=== PATIENT | male | born 1980 | race Caucasian/White ===

== ENCOUNTER 2020-07-29 07:28 | Outpatient (REF) | payer OTHER, SELFPAY | END 2020-07-29 07:29 | disposition home or self-care (01) | LOC: HO.MDS 07:28 | PROVIDERS: PCP Internal Medicine; Visit Provider Internal Medicine Gastroenterology | DX: K50.90 Crohn's disease, unspecified, without complications (principal) | CPT/HCPCS: 96365; J3380 ==

== ENCOUNTER 2020-09-09 | Outpatient (REF) | payer OTHER, MEDICAID, SELFPAY | END 2020-09-09 00:01 | disposition home or self-care (01) | LOC: HO.MDS | PROVIDERS: PCP Internal Medicine; Visit Provider Internal Medicine Gastroenterology | DX: K50.00 Crohn's disease of small intestine without complications (principal) | CPT/HCPCS: 96365; J3380 ==

== ENCOUNTER 2020-10-24 13:27 | Outpatient (REF) | payer OTHER, MEDICAID, SELFPAY | END 2020-10-24 13:28 | disposition home or self-care (01) | LOC: HO.MDS 13:27 | PROVIDERS: PCP Internal Medicine; Visit Provider Internal Medicine Gastroenterology | DX: K50.90 Crohn's disease, unspecified, without complications (principal) | CPT/HCPCS: 96365; J3380 ==

== ENCOUNTER 2020-12-05 13:24 | Outpatient (REF) | payer OTHER, MEDICAID, SELFPAY ==
[2020-12-05 14:08] LABS: Hematocrit 47.9 % (42-52); Hemoglobin 16.1 g/dl (14.0-18.0); Mean Corpuscular HGB Conc 33.6 g/dl (31.0-36.0); Mean Corpuscular Hemoglobin 30.9 pg (27.0-33.0); Mean Corpuscular Volume 91.9 fL (80-98); Mean Platelet Volume 10.2 fL (9.4-12.4); Platelet Count 211 X10*3/uL (160-400); Red Blood Count 5.21 X10*6/uL (4.60-5.80); Red Cell Distribution Width 12.8 % (11.0-16.0); White Blood Count 7.6 X10*3/uL (4.8-10.8)
[2020-12-05 14:44] LABS: Anion Gap 12 (12-20); Blood Urea Nitrogen 15 mg/dL (9-16); Carbon Dioxide 29 mmol/L (22-29); Chloride 104 mmol/L (96-108); Estimated Glomerular Filt Rate > 60; Glucose Random 155 mg/dL (60-115); Potassium 4.1 mmol/L (3.3-5.1); Sodium 141 mmol/L (135-145)
[2020-12-05 14:47] LABS: Erythrocyte Sedimentation Rate 2 MM/HR (0-15)
== END 2020-12-05 13:25 | disposition home or self-care (01) ==
LOC: HO.MDS 13:24
PROVIDERS: PCP Internal Medicine; Visit Provider Internal Medicine Gastroenterology
DX: K50.00 Crohn's disease of small intestine without complications (principal)
CPT/HCPCS: 36415; 80048; 85027; 85652; 86140; 96365; J3380

== ENCOUNTER 2021-01-16 13:24 | Outpatient (REF) | payer OTHER, MEDICAID, SELFPAY ==
[2021-01-16 14:05] LABS: Hematocrit 47.2 % (42-52); Hemoglobin 15.7 g/dl (14.0-18.0); Mean Corpuscular HGB Conc 33.3 g/dl (31.0-36.0); Mean Corpuscular Hemoglobin 30.5 pg (27.0-33.0); Mean Corpuscular Volume 91.8 fL (80-98); Platelet Count 220 X10*3/uL (160-400); Red Blood Count 5.14 X10*6/uL (4.60-5.80); Red Cell Distribution Width 12.8 % (11.0-16.0); White Blood Count 7.2 X10*3/uL (4.8-10.8)
[2021-01-16 14:34] LABS: Alanine Aminotransferase 30 U/L (0-40); Albumin Level 4.3 g/dL (3.5-5.0); Alkaline Phosphatase 78 U/L (39-117); Anion Gap 12 (12-20); Aspartate Amino Transferase 24 U/L (5-37); Bilirubin Total 0.8 mg/dL (0.0-1.0); Blood Urea Nitrogen 12 mg/dL (9-16); Calcium 8.8 mg/dL (8.4-10.2); Carbon Dioxide 27 mmol/L (22-29); Chloride 105 mmol/L (96-108); Estimated Glomerular Filt Rate > 60; Glucose Random 131 mg/dL (60-115); Potassium 3.9 mmol/L (3.3-5.1); Sodium 140 mmol/L (135-145); Total Protein 6.6 g/dL (6.5-8.0)
[2021-01-16 14:46] LABS: Erythrocyte Sedimentation Rate 2 MM/HR (0-15)
== END 2021-01-16 13:25 | disposition home or self-care (01) ==
LOC: HO.MDS 13:24
PROVIDERS: PCP Internal Medicine; Visit Provider Internal Medicine Gastroenterology
DX: K50.00 Crohn's disease of small intestine without complications (principal)
CPT/HCPCS: 36415; 80053; 85027; 85652; 86140; 96365; J3380

== ENCOUNTER → 2021-02-13 09:23 | Outpatient (BNVA) | payer OTHER, MEDICAID, SELFPAY | PROVIDERS: PCP Internal Medicine; Visit Provider Internal Medicine Gastroenterology ==

== ENCOUNTER 2021-02-27 13:26 | Outpatient (REF) | payer OTHER, MEDICAID, SELFPAY | END 2021-02-27 13:27 | disposition home or self-care (01) | LOC: HO.MDS 13:26 | PROVIDERS: PCP Internal Medicine; Visit Provider Internal Medicine Gastroenterology | DX: K50.00 Crohn's disease of small intestine without complications (principal) | CPT/HCPCS: 96365; J3380 ==

== ENCOUNTER 2021-04-10 13:41 | Outpatient (REF) | payer OTHER, MEDICAID, SELFPAY | END 2021-04-10 13:42 | disposition home or self-care (01) | LOC: HO.MDS 13:41 | PROVIDERS: PCP Internal Medicine; Visit Provider Internal Medicine Gastroenterology | DX: K50.90 Crohn's disease, unspecified, without complications (principal) | CPT/HCPCS: 96365; J3380 ==

== ENCOUNTER 2021-05-22 13:24 | Outpatient (REF) | payer OTHER, MEDICAID, SELFPAY | END 2021-05-22 13:25 | disposition home or self-care (01) | LOC: HO.MDS 13:24 | PROVIDERS: PCP Internal Medicine; Visit Provider Internal Medicine Gastroenterology | DX: K50.90 Crohn's disease, unspecified, without complications (principal) | CPT/HCPCS: 96365; J3380 ==

== ENCOUNTER 2021-07-03 13:28 | Outpatient (REF) | payer OTHER, MEDICAID, SELFPAY ==
[2021-07-06 13:41] LABS: TS Negative Control Passed; TS Panel A 0; TS Panel B 0; TS Positive Control Passed; TSpotTB Negative (Negative)
== END 2021-07-03 13:29 | disposition home or self-care (01) ==
LOC: HO.MDS 13:28
PROVIDERS: PCP Internal Medicine; Visit Provider Internal Medicine Gastroenterology
DX: K50.00 Crohn's disease of small intestine without complications (principal)
CPT/HCPCS: 36415; 86481; 96365; J3380

== ENCOUNTER 2021-08-21 13:26 | Outpatient (REF) | payer OTHER, MEDICAID, SELFPAY | END 2021-08-21 13:27 | disposition home or self-care (01) | LOC: HO.MDS 13:26 | PROVIDERS: PCP Internal Medicine; Visit Provider Internal Medicine Gastroenterology | DX: K50.00 Crohn's disease of small intestine without complications (principal) | CPT/HCPCS: 96365; J3380 ==

== ENCOUNTER 2021-10-05 13:11 | Outpatient (REF) | payer OTHER, MEDICAID, SELFPAY | END 2021-10-05 13:12 | disposition home or self-care (01) | LOC: HO.MDS 13:11 | PROVIDERS: PCP Internal Medicine; Visit Provider Internal Medicine Gastroenterology | DX: K50.00 Crohn's disease of small intestine without complications (principal) | CPT/HCPCS: 96365; J3380 ==

== ENCOUNTER 2021-11-20 13:30 | Outpatient (REF) | payer OTHER, SELFPAY | END 2021-11-20 13:31 | disposition home or self-care (01) | LOC: HO.MDS 13:30 | PROVIDERS: PCP Internal Medicine; Visit Provider Internal Medicine Gastroenterology | DX: K50.00 Crohn's disease of small intestine without complications (principal) | CPT/HCPCS: 96365; J3380 ==

== ENCOUNTER 2022-01-01 13:23 | Outpatient (REF) | payer OTHER, SELFPAY | END 2022-01-01 13:24 | disposition home or self-care (01) | LOC: HO.MDS 13:23 | PROVIDERS: PCP Internal Medicine; Visit Provider Internal Medicine Gastroenterology | DX: K50.00 Crohn's disease of small intestine without complications (principal) | CPT/HCPCS: 96365; J3380 ==

== ENCOUNTER 2022-02-12 13:35 | Outpatient (REF) | payer OTHER, SELFPAY | END 2022-02-12 13:36 | disposition home or self-care (01) | LOC: HO.MDS 13:35 | PROVIDERS: PCP Internal Medicine; Visit Provider Internal Medicine Gastroenterology | DX: K50.00 Crohn's disease of small intestine without complications (principal) | CPT/HCPCS: 96365; J3380 ==

== ENCOUNTER 2022-03-26 13:25 | Outpatient (REF) | payer OTHER, SELFPAY | END 2022-03-26 13:26 | disposition home or self-care (01) | LOC: HO.MDS 13:25 | PROVIDERS: PCP Internal Medicine; Visit Provider Internal Medicine Gastroenterology | DX: K50.00 Crohn's disease of small intestine without complications (principal) | CPT/HCPCS: 96365; J3380 ==

== ENCOUNTER 2022-04-23 10:47 | Outpatient (REF) | payer OTHER, SELFPAY ==
[2022-04-23 11:03] LABS: MANUAL DIFF FLAG NO
[2022-04-23 12:19] LABS: Basophils Percent Auto 0.3 % (0-2); Eosinophils Absolute Auto 0.1 X10*3/uL (0.0-0.4); Eosinophils Percent Auto 1.2 % (0-4); Hematocrit 50.6 % (42.0-52.0); Hemoglobin 16.9 g/dl (14.0-18.0); Imm Gran Abs Auto 0.02 X10*3/uL (0.00-0.03); Imm Gran Pct Auto 0.3 % (0.0-0.4); Lymphocytes Absolute Auto 1.7 X10*3/uL (1.2-4.9); Mean Corpuscular HGB Conc 33.4 g/dl (31.0-36.0); Mean Corpuscular Hemoglobin 31.1 pg (27.0-33.0); Mean Platelet Volume 10.8 fL (9.4-12.4); Monocytes Absolute Auto 0.5 X10*3/uL (0.1-1.2); Neutrophils Absolute Auto 5.5 x10*3/uL (2.0-8.3); Neutrophils Percent Auto 70.2 % (45-73); Platelet Count 194 X10*3/uL (160-400); Red Blood Count 5.44 X10*6/uL (4.60-5.80); Red Cell Distribution Width 13.2 % (11.0-16.0); White Blood Count 7.8 X10*3/uL (4.8-10.8)
[2022-04-23 12:45] LABS: Alanine Aminotransferase 10 U/L (0-40); Albumin Level 4.6 g/dL (3.5-5.0); Alkaline Phosphatase 79 U/L (39-117); Anion Gap 12 (12-20); Aspartate Amino Transferase 15 U/L (5-37); Blood Urea Nitrogen 18 mg/dL (9-16); C Reactive Protein 0.31 mg/dL (< or = 0.50); Carbon Dioxide 26 mmol/L (22-29); Chloride 106 mmol/L (96-108); Estimated Glomerular Filt Rate > 60; Glucose Fasting 92 mg/dL (60-99); Sodium 140 mmol/L (135-145); Total Protein 6.9 g/dL (6.5-8.0)
[2022-04-23 13:07] LABS: Ferritin 45 ng/mL (20-250); Vitamin D 25-OH Total 57.2 ng/mL (>30)
[2022-04-23 13:14] LABS: Folate 15.4 ng/mL (> or = 4.0); Vitamin B12 1195 pg/mL (200-900)
[2022-04-27 15:41] LABS: TS Negative Control Passed; TS Panel A 0; TS Panel B 0; TS Positive Control Passed; TSpotTB Negative (Negative)
== END 2022-04-23 10:48 | disposition home or self-care (01) ==
LOC: HO.LAB 10:47
PROVIDERS: PCP Internal Medicine; Visit Provider Internal Medicine Gastroenterology
DX: K50.90 Crohn's disease, unspecified, without complications (principal); K75.81 Nonalcoholic steatohepatitis (NASH)
CPT/HCPCS: 36415; 80053; 82306; 82607; 82728; 82746; 82947; 85025; 86140; 86481

== ENCOUNTER 2022-05-07 13:30 | Outpatient (REF) | payer OTHER, SELFPAY ==
[2022-05-13 12:57] LABS: TS Negative Control Passed; TS Panel A 0; TS Panel B 0; TS Positive Control Passed; TSpotTB Negative (Negative)
== END 2022-05-07 13:31 | disposition home or self-care (01) ==
LOC: HO.MDS 13:30
PROVIDERS: Visit Provider Internal Medicine Gastroenterology
DX: K50.00 Crohn's disease of small intestine without complications (principal)
CPT/HCPCS: 36415; 86481; 96365; J3380

== ENCOUNTER 2022-06-18 13:25 | Outpatient (REF) | payer OTHER, SELFPAY | END 2022-06-18 13:26 | disposition home or self-care (01) | LOC: HO.MDS 13:25 | PROVIDERS: Visit Provider Internal Medicine Gastroenterology | DX: K50.00 Crohn's disease of small intestine without complications (principal) | CPT/HCPCS: 96365; J3380 ==

== ENCOUNTER 2022-07-30 13:43 | Outpatient (REF) | payer OTHER, SELFPAY | END 2022-07-30 13:44 | disposition home or self-care (01) | LOC: HO.MDS 13:43 | PROVIDERS: Visit Provider Internal Medicine Gastroenterology | DX: K50.00 Crohn's disease of small intestine without complications (principal) | CPT/HCPCS: 96365; J3380 ==

== ENCOUNTER 2022-09-10 13:33 | Outpatient (REF) | payer OTHER, SELFPAY | END 2022-09-10 13:34 | disposition home or self-care (01) | LOC: HO.MDS 13:33 | PROVIDERS: Visit Provider Internal Medicine Gastroenterology | DX: K50.00 Crohn's disease of small intestine without complications (principal) | CPT/HCPCS: 96365; J3380 ==

== ENCOUNTER 2022-10-15 09:26 | Outpatient (REF) | payer OTHER, SELFPAY ==
[2022-10-15 10:20] LABS: MANUAL DIFF FLAG NO
[2022-10-15 10:57] LABS: Basophils Percent Auto 0.1 % (0-2); Eosinophils Absolute Auto 0.1 X10*3/uL (0.0-0.4); Eosinophils Percent Auto 1.9 % (0-4); Hematocrit 48.7 % (42.0-52.0); Hemoglobin 16.6 g/dl (14.0-18.0); Imm Gran Abs Auto 0.01 X10*3/uL (0.00-0.03); Imm Gran Pct Auto 0.1 % (0.0-0.4); Lymphocytes Absolute Auto 1.9 X10*3/uL (1.2-4.9); Lymphocytes Percent Auto 25.7 % (20-40); Mean Corpuscular HGB Conc 34.1 g/dl (31.0-36.0); Mean Corpuscular Hemoglobin 31.9 pg (27.0-33.0); Mean Corpuscular Volume 93.5 fL (80.0-98.0); Monocytes Absolute Auto 0.5 X10*3/uL (0.1-1.2); Monocytes Percent Auto 6.8 % (2-11); Neutrophils Absolute Auto 4.7 x10*3/uL (2.0-8.3); Neutrophils Percent Auto 65.4 % (45-73); Platelet Count 196 X10*3/uL (160-400); Red Blood Count 5.21 X10*6/uL (4.60-5.80); Red Cell Distribution Width 12.9 % (11.0-16.0); White Blood Count 7.2 X10*3/uL (4.8-10.8)
[2022-10-15 11:36] LABS: Alanine Aminotransferase 11 U/L (0-40); Albumin Level 4.6 g/dL (3.5-5.0); Alkaline Phosphatase 88 U/L (39-117); Anion Gap 13 (12-20); Aspartate Amino Transferase 17 U/L (5-37); Bilirubin Total 0.9 mg/dL (0.0-1.0); Blood Urea Nitrogen 21 mg/dL (9-16); C Reactive Protein 0.22 mg/dL (< or = 0.50); Calcium 9.6 mg/dL (8.4-10.2); Carbon Dioxide 30 mmol/L (22-29); Chloride 104 mmol/L (96-108); Cholesterol 195 mg/dL; Estimated Glomerular Filt Rate > 60; Glucose Random 91 mg/dL (60-115); HDL Cholesterol 52 mg/dL; LDL Cholesterol Calculated 127 mg/dl; Potassium 4.4 mmol/L (3.3-5.1); Sodium 143 mmol/L (135-145); Total Protein 6.8 g/dL (6.5-8.0); Triglycerides 83 mg/dL
[2022-10-15 13:01] LABS: Reflex LDLD? No
== END 2022-10-15 09:27 | disposition home or self-care (01) ==
LOC: HO.LAB 09:26
PROVIDERS: PCP Internal Medicine; Visit Provider Internal Medicine Gastroenterology
DX: K50.90 Crohn's disease, unspecified, without complications (principal); K75.81 Nonalcoholic steatohepatitis (NASH); E78.5 Hyperlipidemia, unspecified
CPT/HCPCS: 36415; 80053; 80061; 85025; 86140

== ENCOUNTER 2022-10-22 13:31 | Outpatient (REF) | payer OTHER, SELFPAY | END 2022-10-22 13:32 | disposition home or self-care (01) | LOC: HO.MDS 13:31 | PROVIDERS: Visit Provider Internal Medicine Gastroenterology | DX: K50.00 Crohn's disease of small intestine without complications (principal) | CPT/HCPCS: 96365; J3380 ==

== ENCOUNTER 2023-01-13 13:25 | Outpatient (REF) | payer OTHER, SELFPAY | END 2023-01-13 13:26 | disposition home or self-care (01) | LOC: HO.MDS 13:25 | PROVIDERS: Visit Provider Internal Medicine Gastroenterology | DX: K50.00 Crohn's disease of small intestine without complications (principal) | CPT/HCPCS: 96365; J3380 ==

== ENCOUNTER 2023-02-25 13:39 | Outpatient (REF) | payer OTHER, SELFPAY | END 2023-02-25 13:40 | disposition home or self-care (01) | LOC: HO.MDS 13:39 | PROVIDERS: Visit Provider Internal Medicine Gastroenterology | DX: K50.00 Crohn's disease of small intestine without complications (principal) | CPT/HCPCS: 96365; J3380 ==

== ENCOUNTER 2023-04-08 | Outpatient (REF) | payer OTHER, SELFPAY | END 2023-04-08 00:01 | disposition home or self-care (01) | LOC: HO.MDS | PROVIDERS: Visit Provider Internal Medicine Gastroenterology | DX: K50.00 Crohn's disease of small intestine without complications (principal) | CPT/HCPCS: 96365; J3380 ==

== ENCOUNTER → 2023-04-15 11:22 | Outpatient (BNVA) | payer OTHER, SELFPAY | PROVIDERS: PCP Internal Medicine; Visit Provider Internal Medicine Gastroenterology ==

== ENCOUNTER 2023-05-20 13:32 | Outpatient (REF) | payer OTHER, SELFPAY | END 2023-05-20 13:33 | disposition home or self-care (01) | LOC: HO.MDS 13:32 | PROVIDERS: Visit Provider Internal Medicine Gastroenterology | DX: K50.00 Crohn's disease of small intestine without complications (principal) | CPT/HCPCS: 96365; J3380 ==

== ENCOUNTER 2023-07-01 13:30 | Outpatient (REF) | payer OTHER, SELFPAY | END 2023-07-01 13:31 | disposition home or self-care (01) | LOC: HO.MDS 13:30 | PROVIDERS: Visit Provider Internal Medicine Gastroenterology | DX: K50.00 Crohn's disease of small intestine without complications (principal) | CPT/HCPCS: 96365; J3380 ==

== ENCOUNTER 2023-08-12 13:30 | Outpatient (REF) | payer OTHER, SELFPAY ==
[2023-08-14 18:13] LABS: TS Negative Control Passed; TS Panel A 0; TS Panel B 1; TS Positive Control Passed; TSpotTB Negative (Negative)
== END 2023-08-12 13:31 | disposition home or self-care (01) ==
LOC: HO.MDS 13:30
PROVIDERS: Visit Provider Internal Medicine Gastroenterology
DX: K50.90 Crohn's disease, unspecified, without complications (principal); Z11.1 Encounter for screening for respiratory tuberculosis
CPT/HCPCS: 36415; 86481; 96365; J3380

== ENCOUNTER 2023-09-23 13:29 | Outpatient (REF) | payer OTHER, SELFPAY | END 2023-09-23 13:30 | disposition home or self-care (01) | LOC: HO.MDS 13:29 | PROVIDERS: PCP Internal Medicine; Visit Provider Internal Medicine Gastroenterology | DX: K50.90 Crohn's disease, unspecified, without complications (principal) | CPT/HCPCS: 96365; J3380 ==

== ENCOUNTER 2023-11-04 13:33 | Outpatient (REF) | payer OTHER, SELFPAY | END 2023-11-04 13:34 | disposition home or self-care (01) | LOC: HO.MDS 13:33 | PROVIDERS: Visit Provider Internal Medicine Gastroenterology | DX: K50.00 Crohn's disease of small intestine without complications (principal) | CPT/HCPCS: 96365; J3380 ==

== ENCOUNTER 2023-12-16 13:24 | Outpatient (REF) | payer OTHER, SELFPAY ==
[2023-12-16 13:26] VITALS: BP 126/71; PULSE 75; RESP 16; TEMP 37.2; O2SAT 100
[2023-12-16] MEDS: Vedolizumab 300 MG in 0.9 % Sodium Chloride 250 ML 510 MG IV (13:56)
== END 2023-12-16 13:25 | disposition home or self-care (01) ==
LOC: HO.MDS 13:24
PROVIDERS: Visit Provider Internal Medicine Gastroenterology
DX: K50.00 Crohn's disease of small intestine without complications (principal)
CPT/HCPCS: 96365; J3380

== ENCOUNTER 2023-12-19 14:25 | Outpatient (AMB) | payer OTHER, SELFPAY ==
--- NOTE | 2023-12-19 14:29 | A.OFFVIS_ITS ---
Intake Vital Signs 12/19/23 14:30 Height 6 ft Weight 191 lb 12.835 oz BMI 26.0 BP 133/81 Blood Pressure Location Lt brachial Position Sitting Pulse 82 Intake Visit Reasons: 8 month f/u Intake Note: Maury presents in the office as a 8 month follow up. CC: States that he is feeling good and not having any concerns. Variety Performer Required: No Allergies No Known Allergies [No Known Allergies*] Allergy (Verified 04/15/23 11:27) HPI 8 month f/u HPI Details 43 y/o m w/ hx of crohns, HTN and fatty liver being seen for f/u RECAP I saw him at [facility] prior to coming to [place] He has been on entyvio for about 2 yrs or so, AZA was stopped due to pancreatitis prior to this had been doing relatively well but when he reached week 7 he starts to feel sx coming back with diarrhea or abdo discomfort GERD well controlled. HM: TB spot neg 01/2019 and 2020 he has had pneumovax and hep b vaccines, covid vaccination with playnik veYoungCurrent trough 23-- 03/22/19--no antibodies detected. 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 VITAL SIGNS:see workflow HEENT: Nonicteric sclerae, PERRLA, EOMI. Oropharynx clear. Moist mucous membranes. Conjunctivae appear well perfused. No thyroid mass. CHEST: Chest wall is nontender. HEART: Regular rate and rhythm without murmurs. LUNGS: Clear to auscultation bilaterally. ABDOMEN: Soft, positive bowel sounds, nontender, no organomegaly.no flank tenderness SKIN: No rash, no excessive bruising, petechiae, or purpura. NEUROLOGIC: Cranial nerves II-XII intact without motor/sensory deficit. Assessments 1. Crohn''s disease without complication , in remission 1/ Appears to be in deep remission, cont with entyvio q 6 weeks as doing 2/ still trying to stop smoking, encoura ged to do so 3/ colonoscopy screening, suprep [facility] Surgical History H/O colonoscopy H/O esophagogastroduodenoscopy H/O removal of cyst Family History Maternal Grandfather COVID-19 Prostate cancer Social History Household Members: Spouse and Children Alcohol intake: current Alcohol intake frequency: a few times a month Cigarette Packs Per Day: 1 Substance Use Type: Marijuana Physical Exam Vital Signs: Last Vital Signs Pulse 82 12/19/23 14:30 BP 133/81 12/19/23 14:30 BMI result Body Mass Index 26.0 Assessment & Plan Assessment & Plan (1) Crohn's disease in remission: Code(s): K50.90 - Crohn's disease, unspecified, without complications Plan: 1. Crohn''s disease without complication, in remission 1/ Appears to be in deep remission, cont with entyvio q 6 weeks as doing 2/ still trying to stop smoking, encouraged to do so 3/ colonoscopy screening, suprep Medications: New sodium,potassium,mag sulfates 17.5-3.13-1.6 gram (Suprep Bowel Prep Kit) DILUTE; drink 1/2 at 6-8 pm and half at 11 PM- 1AM 354 mL 0RF Coding Level of Care Code Est Pt Level 3 (20665) Diagnoses Crohn's disease in remission K50.90
[2023-12-19 14:30] VITALS: BP 133/81; PULSE 82; BMI 26.0
== END 2023-12-19 15:17 | disposition home or self-care (01) ==
PROVIDERS: PCP Internal Medicine; Visit Provider Internal Medicine Gastroenterology
DX: K50.90 Crohn's disease, unspecified, without complications (principal)
CPT/HCPCS: 99213

== ENCOUNTER 2023-12-19 14:25 | Outpatient (REF) | payer OTHER, SELFPAY ==
[2023-12-19 15:29] LABS: MANUAL DIFF FLAG NO
[2023-12-19 15:45] LABS: Basophils Percent Auto 0.6 % (0-2); Eosinophils Absolute Auto 0.3 X10*3/uL (0.0-0.4); Eosinophils Percent Auto 4.4 % (0-4); Hematocrit 47.9 % (42.0-52.0); Hemoglobin 16.3 g/dl (14.0-18.0); Imm Gran Abs Auto 0.02 X10*3/uL (0.00-0.03); Imm Gran Pct Auto 0.3 % (0.0-0.4); Lymphocytes Absolute Auto 1.8 X10*3/uL (1.2-4.9); Lymphocytes Percent Auto 27.3 % (20-40); Mean Corpuscular Hemoglobin 32.8 pg (27.0-33.0); Mean Corpuscular Volume 96.4 fL (80.0-98.0); Mean Platelet Volume 9.6 fL (9.4-12.4); Monocytes Absolute Auto 0.6 X10*3/uL (0.1-1.2); Monocytes Percent Auto 8.8 % (2-11); Neutrophils Absolute Auto 3.9 x10*3/uL (2.0-8.3); Neutrophils Percent Auto 58.6 % (45-73); Platelet Count 173 X10*3/uL (160-400); Red Blood Count 4.97 X10*6/uL (4.60-5.80); Red Cell Distribution Width 12.5 % (11.0-16.0); White Blood Count 6.6 X10*3/uL (4.8-10.8)
[2023-12-19 16:02] LABS: Alanine Aminotransferase 17 U/L (0-40); Albumin Level 4.5 g/dL (3.5-5.0); Alkaline Phosphatase 56 U/L (39-117); Anion Gap 12 (12-20); Aspartate Amino Transferase 18 U/L (5-37); Bilirubin Total 0.4 mg/dL (0.0-1.0); Blood Urea Nitrogen 32 mg/dL (9-16); C Reactive Protein < 0.04 mg/dL (< or = 0.50); Calcium 9.7 mg/dL (8.4-10.2); Carbon Dioxide 33 mmol/L (22-29); Chloride 103 mmol/L (96-108); Estimated Glomerular Filt Rate > 60; Glucose Random 105 mg/dL (60-115); Potassium 4.5 mmol/L (3.3-5.1); Sodium 143 mmol/L (135-145)
== END 2023-12-19 14:26 | disposition home or self-care (01) ==
LOC: HO.LAB 14:25
PROVIDERS: PCP Internal Medicine; Visit Provider Internal Medicine Gastroenterology
DX: K50.90 Crohn's disease, unspecified, without complications (principal); K75.81 Nonalcoholic steatohepatitis (NASH)
CPT/HCPCS: 36415; 80053; 85025; 86140

== ENCOUNTER 2025-02-07 09:26 | Day surgery (SDC) | payer OTHER, SELFPAY ==
--- OUTSIDE RECORDS SUMMARY | 2025-02-01 14:56 | XMS_ITS | Clinical Summary ---
Author Organization [facility] Building Address [address] [place] [phone] Phone Care Team Providers Care Ammunition Supervisor Name Role Phone Sam Hartman MD Primary Care Provider [phone] Allergies No known active allergies Medications albuterol HFA (PROAIR HFA ; PROVENTIL HFA ; VENTOLIN HFA) 90 mcg/actuation inhaler Take 2 puffs by mouth. 09/20/2019 Active vedolizumab (ENTYVIO) 300 mg recon soln Infuse into a venous catheter. 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 Tobacco use disorder 02/22/2007 Immunizations Name Administration Dates Next Due Hepatitis B (Kfeljum-O-Zenyx , Recombivax HB-Adult) 19yo and older 06/01/2018,05/01/2018 Influenza trivalent, 0.5mL, preservative free (Fluarix; FluLaval; Fluzone) ages 6mo and older (Afluria) 3 years and older 08/05/2010 Pfizer (ages 12 & older) Bivalent, COVID-19 06/11 Pfizer SARS-CoV-2 COVID-19, mRNA, LNP-S, preservative free 10/28/2021 Pneumococcal polysaccharide 23 valent (Pneumovax 23) 2yo and older 05/01/2018 Tdap Tetanus diptheria acell ular pertussis (Boostrix; Adacel) 7yo and older 02/22/2007 Medical History Medical History Date Comments Tobacco use disorder 02/22/2007 DX:Tobacco use disorder Social History Tobacco Use Types Packs/Day Years Used Date Smoking Tobacco: Every Day Cigarettes Last attempted to quit: 11/01/2016 Smokeless Tobacco: Never Tobacco Cessation:Ready to Q uit: Not Asked; Counseling Given: Not Answered Alcohol Use Standard Drinks/Week Comments Yes 0 (1 standard drink = 0.6 oz pur e alcohol) Housing Instability Answer Date Recorde d Are you worried that in the next 2 months you may not have stable housing? No 09/15/2024 Food Access & Nutrition Answer Date Rec orded Do you have access to a vari ety of food including fruits and vegetables? Yes 09/15/2024 Access to Healthcare Answer Date Record ed Within the last 3 months, ho w many times did you visit the emergency department for your medical care? 0 09/15/2024 Health Literacy Answer Date Recorded How often do you need to hav e someone help you when you read instructions, pamphlets, or other written material from your doctor or pharmacy? Never 09/15/2024 Caregiver: How often do you need to have someone help you when you read instructions, pamphlets, or other written material from your doctor or pharmacy? Not on file 09/15/2024 Financial Risk Answer Date Recorded How hard is it for you to pa y for the very basics like food, housing, medical care, and air conditioning / heating? Not very hard 09/15/2024 Transportation Answer Date Recorded Has the lack of transportati on kept you from meetings, work, or from getting things needed for daily living? No Has the lack of transportati on kept you from medical appointments or from getting medications? No 09/15/2024 Social Isolation Answer Date Recorded How often do you feel lonely or isolated from th ose around you? Never 09/15/2024 Food Risk Answer Date Recorded Within the past 12 months we worried whether our food would run out before we got money to buy more. Never true 09/15/2024 Within the past 12 months th e food we bought just didn't last and we didn't have money to get more. Never true 09/15/2024 Dependent Care Answer Date Recorded Do you need help finding or paying for care for your loved ones. For example, special needs child caregiver or elderly care for an older adult? No 09/15/2024 Education Answer Date Recorded Do you think completing more education or training, like finishing a GED, going to college, or learning a trade, would be helpful for you? Yes 09/15/2024 Employment and Income Answer Date Recor ded During the last four weeks, have you been actively looking for work? No 09/15/2024 Living Situation Answer Date Recorded What is your living situation? 1 11/16/2023 Sex and Gender Information Value Date Recorded Sex Assigned at Not on file Legal Sex Male 7:16 AM EST Gender Identity Not on file Sexual Orientation Not on file Obstetrics History Last Filed Vital Signs Vital Sign Reading Time Taken Comments Blood Pressure 122/80 10/18/2024 2:25 PM EST Pulse 84 10/18/2024 2:25 PM EST Temperature 36.2 ??C (97.1 ??F) 10/18/2024 2:25 PM ES T Respiratory Rate - - Oxygen Saturation - - Inhaled Oxygen Concentration - - Weight 90.9 kg (200 lb 8 oz) 10/18/2024 2:25 PM EST Height 182.9 cm (6') 10/18/2024 2:25 PM EST Body Mass Index 27.19 10/18/2024 2:25 PM EST Plan of Treatment Health Maintenance Due Date Last Done Comments DTaP,Tdap,and Td Vaccines (2 - Td or Tdap) 02/22/2017 02/22/2007 Hepatitis B Vaccines (3 of 3 - 19+ 3-dose series) 11/01/2018 06/01/2018, 05/01/2018 Pneumococcal Vaccine: Pediatrics (0 to 5 Years) and At-Risk Patients (6 to 64 Years) (2 of 2 - PCV) 05/01/2019 05/01/2018 Hepatitis C Screening 09/12/2022 Depression Screening 09/15/2025 09/15/2024 Social Influencers of Health Screening 09/15/2025 09/15/2024 Hypertension/CHF/CAD Annual BMP Blood Test 09/17/2025 09/17/2024, 12/20/2022 Cholesterol Screening (Lipid Panel) 09/17/2029 09/17/2024, 12/20/2022 HIV Screening Completed 02/22/2007 COVID-19 Vaccine Completed 08/07/2024, , 06/29/2022, Additional history exists Influenza Vaccine Completed 08/07/2024, , 06/29/2022, Additional history exists HIB Vaccines Aged Out No longer eligi ble based on patient's age to complete this topic HPV Vaccines Aged Out No longer eligi ble based on patient's age to complete this topic Hepatitis A Vaccines Aged Out No long er eligible based on patient's age to complete this topic IPV Vaccines Aged Out No longer eligi ble based on patient's age to complete this topic MMR Vaccines Aged Out No longer eligi ble based on patient's age to complete this topic Meningococcal ACWY Vaccine Aged Out N o longer eligible based on patient's age to complete this topic Meningococcal B Vaccine Aged Out No l onger eligible based on patient's age to complete this topic RSV Immunization Patients Under 20 months Aged Out No longer eligible based on patient's age to complete this topic Varicella Vaccines Aged Out No longer eligible based on patient's age to complete this topic Procedures Procedure Name Priority Date/Time Associated Diagnosis Comments COMPREHENSIVE METABOLIC PANEL Routine 09/17/2024 3:58 PM EST Screening for diabetes mellitus LIPID PANEL WITH REFLEX TO DIRECT LDL Routine 09/17/2024 3:58 PM EST Screening for hyperlipidemia HM HIV SCREENING Routine 02/22/2007 from Last 3 Months or Most Recently Relevant to Health Maintenance Results * (ABNORMAL) Lipid panel with reflex to direct LDL (09/17/2024 3:58 PM EST) Cholesterol 204(H) 0 - 200 mg/dL LAB CHEMISTRY METHOD 09/17/2024 7:08 PM [facility] Triglycerides 184(H) 0 - 150 mg/dL LAB CHEMISTRY METHOD 09/17/2024 7:08 PM [facility] HDL 66 >=40 mg/dL LAB CHEMISTRY METHOD 09/17/2024 7:08 PM [facility] LDL Calculated 101(H) 0 - 100 mg/dL LAB CHEMISTRY METHOD 09/17/2024 7:08 PM [facility] VLDL Cholesterol Kleber 36.8 mg/dL LAB CHEMISTRY METHOD 09/17/2024 7:08 PM [facility] Non HDL Chol. (LDL+VLDL) 138 <145 mg/dL LAB CHEMISTRY METHOD 09/17/2024 7:08 PM [facility] Chol/HDL Ratio 3.1 0.0 - 4.4 LAB CHEMISTRY METHOD 09/17/2024 7:08 PM [facility] Blood Venous blood specimen / Unknown Venipuncture / Unknown 09/17/2024 3:58 PM EST 09/17/2024 3:59 PM EST us Sam Hartman MD LAB BLOOD ORDERABLES Final Res ult [facility] [address] [place] [address], * (ABNORMAL) Comprehensive metabolic panel (09/17/2024 3:58 PM EST) Pathologist [facility] Sodium 138 133 - 145 mmol/L LAB CHEMISTRY METHOD 09/17/2024 7:06 PM [facility] Potassium 4.3 3.5 - 5.5 mmol/L LAB CHEMISTRY METHOD 09/17/2024 7:06 PM [facility] Chloride 104 96 - 110 mmol/L LAB CHEMISTRY METHOD 09/17/2024 7:06 PM [facility] CO2 30 21 - 32 mmol/L LAB CHEMISTRY METHOD 09/17/2024 7:06 PM [facility] Anion Gap 4 3 - 11 LAB CHEMISTRY METHOD 09/17/2024 7:06 PM [facility] Glucose 92 70 - 100 mg/dL LAB CHEMISTRY METHOD 09/17/2024 7:06 PM [facility] BUN 32(H) 5 - 25 mg/dL LAB CHEMISTRY METHOD 09/17/2024 7:06 PM [facility] Creatinine 1.13 0.70 - 1.30 mg/dL LAB CHEMISTRY METHOD 09/17/2024 7:06 PM [facility] eGFR 82 >=60 mL/min/1. 73m2 LAB CHEMISTRY METHOD 09/17/2024 7:06 PM [facility] Comment:Calculation based on the??Chronic Kidney Disease Epidemiology Collaboration (CKD-EPI) equation refit??without adjustment for race. BUN/Creatinine Ratio 28.3 LAB CHEMISTRY METHOD 09/17/2024 7:06 PM [facility] Calcium 9.3 8.5 - 10.5 mg/dL LAB CHEMISTRY METHOD 09/17/2024 7:06 PM [facility] AST (SGOT) 19 10 - 42 unit/L LAB CHEMISTRY METHOD 09/17/2024 7:06 PM [facility] ALT (SGPT) 20 10 - 60 unit/L LAB CHEMISTRY METHOD 09/17/2024 7:06 PM [facility] Alkaline Phosphatase 65 42 - 121 unit/L LAB CHEMISTRY METHOD 09/17/2024 7:06 PM [facility] Total Protein 6.8 6.0 - 8.0 g/dL LAB CHEMISTRY METHOD 09/17/2024 7:06 PM [facility] Albumin 4.1 3.2 - 5.0 g/dL LAB CHEMISTRY METHOD 09/17/2024 7:06 PM EST [facility] Total Bilirubin 0.4 0.0 - 1.4 mg/dL LAB CHEMISTRY METHOD 09/17/2024 7:06 PM EST [facility] Blood Venous blood specimen / Unknown Venipuncture / Unknown 09/17/2024 3:58 PM EST 09/17/2024 3:59 PM EST Sam Hartman MD LAB BLOOD ORDERABLES Final Res ult [facility] [address] [place] [address], * HIV Screening (02/22/2007) Pathologist [facility] HIV Screening abstracted Historical Provider HEALTH MAINTENANCE Final Result from Last 3 Months or Most Recently Relevant to Health Maintenance Insurance * Guarantor: Maury Gutiérrez Account Type Relation to Patient Date of Phone Billing Address Personal/Family Self 1980 [phone] (Work) [address] [place] [address] Care Teams Ammunition Supervisor Relationship Specialty Start Date End Date Sam Hartman MD [address] [place] [id number] PCP - General Internal Medicine 10/18/24
[2025-02-05 14:48] VITALS: BMI 26.0
--- NOTE | 2025-02-06 09:43 | HO.ANESPROP2 ---
Documented by User: Miguelina Latfi NP 02/06/25 09:43 HPI - Anesthesia Eval Consult details Narrative: 44yo M for Colonoscopy PMFSH Active Problems Active Problems: All Active Problems Smoking (Acute) Hyperlipidemia (Acute) Crohn's disease in remission (Acute) Family History Family History Maternal Grandfather COVID-19 Prostate cancer Surgical History Surgical History H/O colonoscopy H/O esophagogastroduodenoscopy H/O removal of cyst Social History Social History Household Members: Spouse and Children Alcohol intake: current Alcohol intake frequency: a few times a month Patient Tobacco Use Status: Current everyday Tobacco user Tobacco use type: Cigarette Cigarette Packs Per Day: 1 Use of substances other than those prescribed or required for medical reasons: Yes Substance Use Type: Marijuana Are you DNR?: No Advance Directives: No Advance Directives Information Provided: Yes Meds Allergies Allergy/AdvReac Type Severity Reaction Status Date / Time No Known Allergies Allergy Verified 02/07/25 09:56 [No Known Allergies*] Home Medications ?Medication ?Instructions ?Recorded ?Confirmed ?Last Taken ?Type vedolizumab 300 mg intravenous 300 mg IV Q4W 02/13/21 02/07/25 01/01/25 History solution (Entyvio) Exam Height,Weight and Vital Signs: Height 6 ft Weight 86.976 kg Assessment and Plan Assessment Anesthesia Assessment: Chart Reviewed Documented by User: Karolina Wilkes MD 02/07/25 10:30 PMFSH Past Medical History Functional capacity: wheelchair bound Family History Family History Maternal Grandfather COVID-19 Prostate cancer Surgical History Surgical History H/O colonoscopy H/O esophagogastroduodenoscopy H/O removal of cyst History of Problems with Anesthesia: No Social History Social History Household Members: Spouse and Children Alcohol intake: current Alcohol intake frequency: a few times a month Patient Tobacco Use Status: Current everyday Tobacco user Tobacco use type: Cigarette Cigarette Packs Per Day: 1 Use of substances other than those prescribed or required for medical reasons: Yes Substance Use Type: Marijuana Are you DNR?: No Advance Directives: No Advance Directives Information Provided: Yes Meds Allergies Allergy/AdvReac Type Severity Reaction Status Date / Time No Known Allergies Allergy Verified 02/07/25 09:56 [No Known Allergies*] Home Medications ?Medication ?Instructions ?Recorded ?Confirmed ?Last Taken ?Type vedolizumab 300 mg intravenous 300 mg IV Q4W 02/13/21 02/07/25 01/01/25 History solution (Entyvio) Exam Airway Mallampati Class: II TM Dist: >3cm Denture: Upper Loose/Missing/Broken Teeth: No Heart: RRR Lungs: CTA Assessment and Plan Assessment Anesthesia Assessment: Anesthesia Plan Discussed Final Anesthetic Review History of Problems with Anesthesia: No NPO: Yes ASA Class: II Final Preanesthetic Review: Meds/Allgs Chart Reviewed, Consent Obtained/Reviewed and Anes Risks/Benef Reviewed Patient Risk: Low Procedure Risk: Low Anesthetic Plan Anesthetic Plan: MAC: Disposition: Standard PACU
[2025-02-07 09:32] VITALS: BMI 25.4
[2025-02-07 09:41] VITALS: BP 151/83; PULSE 90; RESP 22; TEMP 37.2; O2SAT 98
[2025-02-07] MEDS: Lactated Ringers 1,000 ML 100 ML IVCONT (09:54)
--- NOTE | 2025-02-07 10:26 | MHC.SHP ---
Pre-Procedural Eval Section A - 24 Hr Update-Section A only Date of Service: 02/07/25 Section B - Complete if H&P > 30 days Chief Complaint: Encounter for screening for malignant neoplasm of Relevant Family History (Specify if Yes): No Relevant Social History: Tobacco Use Present Medications: see Short Stay Collaborative assessment Medical History: Significant History (crohn, HTN) History of Previous Operations: Relevant previous surgery/procedure and date(s) (H/O colonoscopy H/O esophagogastroduodenoscopy H/O removal of cyst, bowel resection) Allergies: Allergies Allergy/AdvReac Type Severity Reaction Status Date / Time No Known Allergies Allergy Verified 02/07/25 09:56 [No Known Allergies*] Review of Systems Sugical H&P ROS: Negative: Constitution, Cardiovascular, Respiratory, Neurological, Psychiatric, Hem-Onc, Allergic/Immunologic, Gastrointestinal, Genitourinary, Musculoskeletal, Integumentary, Endocrine and Eyes/Ears/Nose/Throat Exam Surgical H&P Exam: Normal: HEENT, Normal: Heart, Normal: Lungs, Normal: Extremities, Normal: Abdomen, Normal: Skin and Normal: Neurological Plan Diagnosis/Plan: Unchanged I have reviewed the history and physical and performed a pertinent physical examination on my patient. No changes have occurred unless specified. Time Spent With Patient Time: Total time managing care of this patient today ____ minutes.
--- NOTE | 2025-02-07 11:00 | HO.OPN-COLON ---
Colonoscopy Operative Note Operative Note Date of Service: 02/07/25 Narrative: Operative Information Procedure Description: Colonoscopy Indication: screening, crohns Anesthesia: MAC COLONOSCOPY Instrument: Olympus variable stiffness pediatric scope 190L Colonoscopy Monitoring: Vital signs and clinical assessment, continuous EKG monitoring, Pulse oximetry, Carbon Dioxide monitoring and blood pressure monitoring were done throughout the procedure. Colon withdrawal time was 15 minutes. Procedure: The patient was placed in the left lateral decubitis position and pre-procedure medications were administered. After a digital rectal examination of the ano-rectum, the video colonoscope was inserted into the rectum and advanced through the colon to the cecum/TI. The colonoscope was slowly withdrawn in a retrograde panoramic fashion and the colon mucosa was carefully examined including a retroflexed view of the rectum. Findings and interventions are described below. Procedure Difficulty: easy Findings: Terminal Ileum-normal- random bx taken random bx taken from right, left and rectum Cecum: 5-7 mm sessile polyp removed with cold snare Ascending Colon: normal Transverse Colon -normal Descending Colon:normal Sigmoid Colon: 6-8 mm sessile polyp removed with cold snare Rectum: Retroflexion with small internal hemorrhoids seen, grade I Anorectum - normal Intervention: cold snare, and cold forceps Colon preparation: [address] Bowel Preparation Scale Right colon; 1-2 Transverse colon: 2 Left colon; 1-2 (0 = Unprepared colon segment with mucosa not seen due to solid stool that cannot be cleared. 1 = Portion of mucosa of the colon segment seen, but other areas of the colon segment not well seen due to staining, residual stool and/or opaque liquid. 2 = Minor amount of residual staining, small fragments of stool and/or opaque liquid, but mucosa of colon segment seen well. 3 = Entire mucosa of colon segment seen well with no residual staining, small fragments of stool or opaque liquid) Impression and Post Procedure Diagnosis: colon polyps x 2 internal hemorrhoids Plan: High fiber diet leaflet Avoid straining at stool, epsom salts and sitz bath, anusol supps or cream Repeat Colonoscopy in 1 year or earlier if clinically indicated Above findings were reviewed with the patient and relevant handouts were provided if indicated.
[2025-02-07 11:05] VITALS: BP 91/57; PULSE 66; RESP 18; TEMP 36.2; O2SAT 98
[2025-02-07 11:15] VITALS: BP 109/64; PULSE 80; RESP 16; TEMP 36.1; O2SAT 99
== END 2025-02-07 12:02 | disposition home or self-care (01) ==
PROVIDERS: PCP Internal Medicine; Visit Provider Internal Medicine Gastroenterology
PROC: 0DJD8ZZ Inspection of Lower Intestinal Tract, Via Natural or Artificial Opening Endoscopic (ICD-10-PCS; CPT 45378; principal; 2025-02-07 12:00)
DX: Z12.11 Encounter for screening for malignant neoplasm of colon (principal); D12.0 Benign neoplasm of cecum; D12.5 Benign neoplasm of sigmoid colon; K64.0 First degree hemorrhoids; E78.5 Hyperlipidemia, unspecified; F12.90 Cannabis use, unspecified, uncomplicated; F17.210 Nicotine dependence, cigarettes, uncomplicated
CPT/HCPCS: 45385; 45380; 88305; J2250; J2704

== ENCOUNTER → 2025-02-07 09:26 | Outpatient (BNV) | payer OTHER, SELFPAY | PROVIDERS: PCP Internal Medicine; Visit Provider Internal Medicine Gastroenterology | DX: Z12.11 Encounter for screening for malignant neoplasm of colon (principal); D12.0 Benign neoplasm of cecum; D12.5 Benign neoplasm of sigmoid colon; K64.9 Unspecified hemorrhoids | CPT/HCPCS: 45380; 45385 ==